=== PATIENT | female | born 1985 | race Caucasian/White ===

== ENCOUNTER 2022-12-25 20:33 | Emergency (ER) | payer OTHER ==
[~2022-12-25] VITALS: Ht 157.5 cm; Wt 67.1 kg
[2022-12-25 21:12] VITALS: BP 130/91; PULSE 81; RESP 16; TEMP 97; O2SAT 99
--- NOTE | 2022-12-25 22:00 | NUR ---
Patient discharged with v/s stable. Written and verbal after care instructions given and explained. Patient verbalized understanding. Ambulatory with steady gait. All questions addressed prior to discharge. Advised to follow up with PMD.
== END 2022-12-25 22:00 | disposition home or self-care (01) ==
LOC: MED 20:33
DX: Z48.01 Encounter for change or removal of surgical wound dressing (principal); Z98.890 Other specified postprocedural states
CPT/HCPCS: 99281

== ENCOUNTER 2024-02-01 08:16 | Emergency (ER) | payer OTHER ==
[~2024-02-01] VITALS: Ht 157.5 cm; Wt 68.0 kg
[2024-02-01 08:23] VITALS: BP 147/81; PULSE 75; RESP 20; TEMP 98.2; O2SAT 99
--- NOTE | 2024-02-01 08:31 | NUR ---
PT AMBULATED TO BED 7
--- NOTE | 2024-02-01 09:00 | NUR ---
PT DENIES N/V/D; SKIN IS INTACT, PINK/WARM/DRY; AAOX4, PERRL, WITH EVEN AND STEADY GAIT; LUNGS CLEAR BL, BREATHING UNLABORED; HR EVEN AND REGULAR, BL PERIPHERAL PULSES PRESENT; BS ACTIVE X4, NO TENDERNESS TO PALPATION, NO HEPATOSPLENOMEGALLY PALPATED, RESONANT TO PERCUSSION; PT DENIES ANY FEVER, CP, SOB, OR COUGH AT THIS TIME; PT STATES 5/10 PAIN AT THIS TIME IN THE THOART; VSS; PATIENT POSITIONED FOR COMFORT; HOB ELEVATED; BEDRAILS UP X2; BED DOWN. NKA
[2024-02-01] MEDS ORDERED: [UNRECOGNIZED DRUG - CODE] PO (09:04)
[2024-02-01 09:38] VITALS: BP 147/81; PULSE 75; RESP 20; TEMP 98.2; O2SAT 99
== END 2024-02-01 09:56 | disposition home or self-care (01) ==
LOC: MED 08:16
DX: J02.9 Acute pharyngitis, unspecified (principal); R51.9 Headache, unspecified; Z79.1 Long term (current) use of non-steroidal anti-inflammatories (NSAID)
CPT/HCPCS: 87081; 99283